=== PATIENT | female | born 1960 ===

== ENCOUNTER 2019-03-21 09:28 | Outpatient (CLI) | payer OTHER | END 2019-03-21 09:30 | disposition home or self-care (01) | LOC: RX STUDY 09:28 | DX: K57.30 Diverticulosis of large intestine without perforation or abscess without bleeding (principal); Z93.3 Colostomy status ==

== ENCOUNTER 2019-05-18 08:51 | Outpatient (CLI) | payer OTHER | END 2019-05-18 08:54 | disposition home or self-care (01) | LOC: RX STUDY 08:51 | DX: K57.30 Diverticulosis of large intestine without perforation or abscess without bleeding (principal); Z93.3 Colostomy status ==